=== PATIENT | male | born 1945 | race Caucasian/White ===

== ENCOUNTER → 2021-07-25 10:50 | Outpatient (CLI) | payer MEDICARE, OTHER, SELFPAY ==
--- NOTE | 2021-07-25 | DI.MRI.S_ITS ---
PROCEDURE: MR SHOULDER RT WO CON INDICATIONS: Pain in right shoulder TECHNIQUE: Noncontrast oblique coronal T2 fast spin echo with fat saturation, oblique sagittal T1 spin echo and T2 fast spin echo with fat saturation, axial T1 spin echo and T2 fast spin echo with fat saturation through the shoulder. COMPARISON: None. FINDINGS: Image quality: Excellent. Rotator cuff: Tendinosis and moderate grade articular and bursal surface partial thickness tear involving distal supraspinatus at its insertion on the humeral head is seen extending to musculotendinous junction. Focal area of high-grade to full thickness perforation involving posterior fibers of distal supraspinatus at its insertion on the humeral head is seen with up to 1.4 cm medial retraction of torn tendon fibers and fluid-filled gap measures approximately 5 mm in AP dimension. Distal infraspinatus tendinosis is seen. Tendinosis and low-grade intrasubstance partial-thickness tear involving distal subscapularis is seen. Sagittal images demonstrate no significant muscle atrophy. Bones and bursae: There is no fracture or dislocation. Marrow edema and nonspecific subcortical cyst formation in greater tuberosity of humeral head near rotator cuff tendon insertion is seen.. Moderate acromioclavicular joint osteoarthritic changes are seen with downward osteophyte formation depressing the musculotendinous junction of supraspinatus. Mild to moderate glenohumeral joint osteoarthritic changes also noted. There is moderate amount of subacromial subdeltoid bursal fluid. Capsule and soft tissues: There is subtle fraying of superior anterior labrum at 1 to 2 o'clock position. Signal abnormality and contour irregularity involving inferior labrum at 4 to 6 o'clock position is also seen. The long head of the biceps tendinosis is seen. The rotator interval appears normal, without fibrosis. The coracohumeral ligament is normal in thickness. IMPRESSION: 1. Tendinosis and moderate grade articular and bursal surface partial thickness tear involving distal supraspinatus extending to musculotendinous junction with focal area of high-grade to full thickness perforation involving posterior fibers of distal supraspinatus at its insertion on the humeral head and up to 1.4 cm medial retraction of torn tendon fibers and fluid-filled gap measures 5 mm in AP dimension. Distal infraspinatus tendinosis. Tendinosis and low-grade intrasubstance partial-thickness tear involving distal subscapularis. 2. No fracture or dislocation. Nonspecific intraosseous cyst formation in greater tuberosity of humeral head near rotator cuff tendon insertions. Moderate acromioclavicular joint and glenohumeral joint osteoarthritis. Moderate amount of subacromial subdeltoid bursal fluid. 3. Proximal intra-articular portion of long head of biceps tendinosis. 4. Finding is concerning for focal superior anterior labral tear at 1 to 2 o'clock position and anterior-inferior labral tear at 4 to 6 o'clock position. Dictated by: Markus Cuadra M.D. on 07/25/2021 at 12:52 Approved by: Markus Cuadra M.D. on 07/25/2021 at 13:05
== END ==
PROVIDERS: PCP Student in an Organized Health Care Education/Training Program; Referring Provider Orthopaedic Surgery; Visit Provider Orthopaedic Surgery
DX: M25.511 Pain in right shoulder (principal); M75.111 Incomplete rotator cuff tear or rupture of right shoulder, not specified as traumatic; M19.011 Primary osteoarthritis, right shoulder
CPT/HCPCS: 73221